=== PATIENT | female | born 1955 | race Caucasian/White ===

== ENCOUNTER 2018-03-20 08:25 | Day surgery (SDC) | payer OTHER | END 2018-03-20 12:53 | disposition home or self-care (01) | LOC: AMB-ENDOS 08:25 | DX: D12.8 Benign neoplasm of rectum (principal); K64.8 Other hemorrhoids ==

== ENCOUNTER 2020-09-22 07:50 | Day surgery (SDC) | payer OTHER | END 2020-09-22 12:25 | disposition home or self-care (01) | LOC: AMB-ENDOS 07:50 | PROVIDERS: ATTEND Surgery | DX: D12.2 Benign neoplasm of ascending colon (principal); K64.8 Other hemorrhoids; Z20.822 Contact with and (suspected) exposure to COVID-19 ==

== ENCOUNTER 2023-12-19 20:46 | Emergency (ER) | payer OTHER ==
[~2023-12-19] VITALS: Ht 157.5 cm; Wt 72.6 kg
[2023-12-19] MEDS ORDERED: OxyCODONE HCL/APAP UD (PERCOCET) PO ONE (21:30)
[2023-12-19 21:40] LABS: HEMATOCRIT 34.2 % (36.0-45.00); HEMOGLOBIN 11.2 g/dL (12.0-15.00); MEAN CELL VOLUME 95.3 fL (80.00-100.00); MEAN CORPUSCULAR HEMOGLOBIN 31.2 pg (27.00-32.0); MEAN CORPUSCULAR HGB CONC 32.7 g/dl (32.0-36.0); PLATELET COUNT 219 K/uL (150-450); RED BLOOD COUNT 3.59 M/uL (4.00-6.00); RED CELL DISTRIBUTION WIDTH 15.1 % (11.5-14.5)
[2023-12-19 21:58] LABS: INR 2.32; PROTHROMBIN TIME 23.8 SECONDS (9.0-11.5)
[2023-12-19 21:59] LABS: PARTIAL THROMBOPLASTIN TIME 49.1 SECONDS (22.0-34.0)
[2023-12-19 22:02] LABS: ALBUMIN 3.5 gm/dL (3.4-5.0); BILIRUBIN TOTAL 0.37 mg/dL (0.3-1.2); CREATININE SERUM 1.29 mg/dL (0.55-1.02); GFR 40.86; GLOBULINA 2.8 G/DL (2.4-3.5); POTASSIUM 4.45 mEq/L (3.5-5.1); TOTAL PROTEIN 6.3 gm/dL (6.4-8.2)
[2023-12-19] MEDS ORDERED: KETO10TA2 PO (23:47)
== END 2023-12-20 00:34 | disposition home or self-care (01) ==
LOC: ER 20:46
PROVIDERS: General Practice
DX: S70.02XA Contusion of left hip, initial encounter (principal); S00.93XA Contusion of unspecified part of head, initial encounter; W18.39XA Other fall on same level, initial encounter; Y93.89 Activity, other specified; Y92.89 Other specified places as the place of occurrence of the external cause; Y99.9 Unspecified external cause status; E11.9 Type 2 diabetes mellitus without complications; I10 Essential (primary) hypertension